=== PATIENT | female | born 1995 | race Caucasian/White ===

== ENCOUNTER 2017-09-04 22:17 | Emergency (ER) | payer OTHER ==
[~2017-09-04] VITALS: Ht 154.9 cm; Wt 44.0 kg
[2017-09-05] MEDS ORDERED: KETO10TA2 PO (12:18)
== END 2017-09-05 12:52 | disposition home or self-care (01) ==
LOC: ER 22:17
DX: N83.291 Other ovarian cyst, right side (principal); R10.84 Generalized abdominal pain

== ENCOUNTER 2018-06-24 18:04 | Emergency (ER) | payer OTHER ==
[~2018-06-24] VITALS: Ht 160 cm; Wt 45.4 kg
[~2018-06-24 18:04] MED LIST: KETO10TA2 PO
== END 2018-06-24 21:18 | disposition home or self-care (01) ==
LOC: ER 18:04
DX: J32.8 Other chronic sinusitis (principal); M62.838 Other muscle spasm